=== PATIENT | female | born 2005 | race Caucasian/White ===

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

== ENCOUNTER 2024-02-10 09:59 | Emergency (ER) | payer OTHER ==
[2024-02-10] MEDS: SODIUM CHLORIDE 0.9% 2,000 ML IV STA (10:46)
--- NOTE | 2024-02-10 10:57 | ED ---
Nausea/Vomiting/Diarrhea HPI - General Chief complaint: Nausea/Vomiting/Diarrhea Stated complaint: N/V/D 16wks Preg Time Seen by Provider: 02/10/24 10:24 Source: patient, RN notes reviewed Mode of arrival: ambulatory Limitations: no limitations - History of Present Illness Initial comments: This is a 18-year-old female who presents to the emergency department for nausea and vomiting in . Patient is approximately 17 weeks and . States that the symptoms started 2 days ago. Reports associated abdominal pain. She has been unable to keep anything down since the symptoms started. Denies any changes in bowel habits. Follows with DEVULCANIZER OPERATOR at a different [facility] facility. Denies any vaginal bleeding. She has had some URI symptoms and has been around some sick contacts. MD complaint: nausea, vomiting, abdominal pain - Related Data Previous Rx's Medication Instructions Recorded Cephalexin [Keflex] 500 mg PO Q12HR 7 Days #14 cap 08/10/22 Vit No.179/Iron/Folic 1 each PO DAILY 90 Days #90 tab 08/10/22 [ Tablet] Prochlorperazine Maleate 10 mg PO Q8H PRN 7 Days #21 tablet 08/11/22 Cephalexin [Keflex] 500 mg PO Q6HR #28 cap 12/02/22 Nirmatrelvir/Ritonavir [Paxlovid 1 pack PO BID 5 Days #30 tab 02/10/24 300-100 mg Dose Pack] Ondansetron Odt [Zofran Odt] 4 mg PO Q8HR PRN #20 tab 02/10/24 Allergies Allergy/AdvReac Type Severity Reaction Status Date / Time No Known Allergies Allergy Verified 02/10/24 10:18 Review of Systems ROS Statement: Those systems with pertinent positive or pertinent negative responses have been documented in the HPI. ROS Other: All systems not noted in ROS Statement are negative. Past Medical History Past Medical History: No Reported History History of Any Multi-Drug Resistant Organisms: None Reported Past Surgical History: No Surgical Hx Reported Past Anesthesia/Blood Transfusion Reactions: No Reported Reaction Past Psychological History: No Psychological Hx Reported Smoking Status: Never smoker, Vaper Past Alcohol Use History: None Reported Past Drug Use History: None Reported - Past Family History Mother Additional Family Medical History / Comment(s): frequent UTI;pylo General Exam Limitations: no limitations General appearance: alert, in no apparent distress Head exam: Present: atraumatic, normocephalic, normal inspection Respiratory exam: Present: normal lung sounds bilaterally. Absent: respiratory distress, wheezes, rales, rhonchi, stridor Cardiovascular Exam: Present: regular rate, normal rhythm, normal heart sounds. Absent: systolic murmur, diastolic murmur, rubs, gallop, clicks Neurological exam: Present: alert, oriented X3, CN II-XII intact Psychiatric exam: Present: normal affect, normal mood Skin exam: Present: warm, dry, intact, normal color. Absent: rash Course Vital Signs 02/10/24 02/10/24 02/10/24 10:16 11:53 13:03 Temperature 97.9 F 97.9 F 98.1 F Pulse Rate 74 86 82 Respiratory 20 18 18 Rate Blood Pressure 111/74 114/74 118/76 O2 Sat by Pulse 99 97 98 Oximetry Medical Decision Making - Medical Decision Making This is a 18 year old female who presents to the emergency department for nausea, vomiting, and abdominal pain. Was pt. sent in by a medical professional or institution? @ -No Did you speak to anyone other than the patient for history? @ -No Did you review nursing and triage notes? @ -Yes, and I agree, it is accurate with regards to the patient's symptoms. Were old charts reviewed? @ -No Differential Diagnosis? @ -Differential Nausea and Vomiting: Gastroenteritis, cholecystitis, appendicitis, pancreatitis, migraine, benign positional vertigo, food borne illness, pyelonephritis, irritable bowel syndrome, influenza, Covid, GERD, incarcerated hernia, intestinal obstruction, this is not meant to be an all-inclusive list. EKG interpreted by me (3pts min.)? @ -Not obtained X-rays interpreted by me (1pt min.)? @ -Not obtained CT interpreted by me (1pt min.)? @ -Not obtained U/S interpreted by me (1pt. min.)? @ -OB ultrasound obtained. My interpretation identifies a single live IUP What testing was considered but not performed? (CT, X-rays, U/S, labs)? Why? @ -None What meds were considered but not given? Why? @ -None Did you discuss the management of the patient with other professionals? @ -No Did you reconcile home meds? @ -No Was smoking cessation discussed for >3mins.? @ -No Was critical care preformed (if so, how long)? @ -No Were there social determinants of health that impacted care today? How? (Homelessness, low income, unemployed, alcoholism, drug addiction, transportation, low edu. Level, literacy, decrease access to med. care, prison, rehab)? @ -No Was there de-escalation of care discussed even if they declined? (Discuss DNR or withdrawal of care, Hospice)? @ -No What co-morbidities impacted this encounter? (DM, HTN, Smoking, COPD, CAD, Cancer, CVA, Hep., AIDS, mental health diagnosis, sleep apnea, morbid obesity)? @ - Was patient admitted / discharged? @ -Discharged. Lab work unremarkable. Urinalysis negative for signs of infection. Patient is positive for COVID-19. Obstetrics ultrasound obtained demonstrating a single live intrauterine measuring 18 weeks and 4 days. Cardiac activity 149 bpm. Patient treated with IV fluids, Tylenol, and Zofran with improvement in symptoms. She was tolerating oral intake afterwards and eating fried chicken. Discussed with the patient that because she is , we will start her on Paxlovid. She was also given a prescription for Zofran for additional symptomatic management. She is advised to slowly advance her diet as tolerated and remain well-hydrated. Also advised Tylenol as needed for pain relief. Patient discharged home in stable condition. Undiagnosed new problem with uncertain prognosis? @ -None Drug Therapy requiring intensive monitoring for toxicity (Heparin, Nitro, Insulin, Cardizem)? @ -None Were any procedures done? @ -None Diagnosis/symptom? @ -Nausea and vomiting, abdominal pain, COVID-19 Acute, or Chronic, or Acute on Chronic? @ -Acute Uncomplicated (without systemic symptoms) or Complicated (systemic symptoms)? @ -Uncomplicated Side effects of treatment? @ -None Exacerbation, Progression, or Severe Exacerbation] @ -Not applicable Poses a threat to life or bodily function? @ -No Return precautions reviewed in depth, the patient is instructed to return to the emergency department with any new, worsening, or concerning symptoms. Patient verbalized understanding. This case was discussed in detail with the attending ED physician, Dr. Sandra davis. Presentation, findings, and treatment plan discussed in detail as well. - Lab Data Result diagrams: 02/10/24 10:45 02/10/24 10:45 Lab Results 02/10/24 02/10/24 02/10/24 Range/Units 10:45 10:45 10:45 WBC 7.8 (4.0-11.0) k/uL RBC 3.98 (3.80-5.40) m/uL Hgb 12.5 (11.4-16.0) gm/dL Hct 37.9 (34.0-46.0) % MCV 95.2 (80.0-100.0) fL MCH 31.4 (25.0-35.0) pg MCHC 33.0 (31.0-37.0) g/dL RDW 13.3 (11.5-15.5) % Plt Count 237 (150-450) k/uL MPV 7.7 Neutrophils % 69 % Lymphocytes % 20 % Monocytes % 5 % Eosinophils % 3 % Basophils % 0 % Neutrophils # 5.4 (1.3-7.7) k/uL Lymphocytes # 1.6 (1.0-4.8) k/uL Monocytes # 0.4 (0-1.0) k/uL Eosinophils # 0.2 (0-0.7) k/uL Basophils # 0.0 (0-0.2) k/uL Sodium 133 L (137-145) mmol/L Potassium 4.6 (3.5-5.1) mmol/L Chloride 104 (98-107) mmol/L Carbon Dioxide 25 (22-30) mmol/L Anion Gap 4 mmol/L BUN 5 L (7-17) mg/dL Creatinine 0.36 L (0.52-1.04) mg/dL Est GFR (CKD-EPI)AfAm >90 (>60 ml/min/1.73 sqM) Est GFR (CKD-EPI)NonAf >90 (>60 ml/min/1.73 sqM) Glucose 80 (74-99) mg/dL Calcium 8.5 (8.4-10.2) mg/dL Total Bilirubin 0.5 (0.2-1.3) mg/dL AST 37 H (14-36) U/L ALT 32 (4-34) U/L Alkaline Phosphatase 43 (38-126) U/L Total Protein 6.7 (6.3-8.2) g/dL Albumin 3.6 (3.5-5.0) g/dL Amylase 57 (30-110) U/L Lipase 21 L (23-300) U/L Urine Color Colorless Urine Appearance Clear (Clear) Urine pH 7.5 (5.0-8.0) Ur Specific [place] 1.017 (1.001-1.035) Urine Protein Negative (Negative) Urine Glucose (UA) Negative (Negative) Urine Ketones Negative (Negative) Urine Blood Negative (Negative) Urine Nitrite Negative (Negative) Urine Bilirubin Negative (Negative) Urine Urobilinogen <2.0 (<2.0) mg/dL Ur Leukocyte Esterase Negative (Negative) Influenza Type A (PCR) (Not Detectd) Influenza Type B (PCR) (Not Detectd) RSV (PCR) (Not Detectd) SARS-CoV-2 (PCR) (Not Detectd) 02/10/24 Range/Units 10:45 WBC (4.0-11.0) k/uL RBC (3.80-5.40) m/uL Hgb (11.4-16.0) gm/dL Hct (34.0-46.0) % MCV (80.0-100.0) fL MCH (25.0-35.0) pg MCHC (31.0-37.0) g/dL RDW (11.5-15.5) % Plt Count (150-450) k/uL MPV Neutrophils % % Lymphocytes % % Monocytes % % Eosinophils % % Basophils % % Neutrophils # (1.3-7.7) k/uL Lymphocytes # (1.0-4.8) k/uL Monocytes # (0-1.0) k/uL Eosinophils # (0-0.7) k/uL Basophils # (0-0.2) k/uL Sodium (137-145) mmol/L Potassium (3.5-5.1) mmol/L Chloride (98-107) mmol/L Carbon Dioxide (22-30) mmol/L Anion Gap mmol/L BUN (7-17) mg/dL Creatinine (0.52-1.04) mg/dL Est GFR (CKD-EPI)AfAm (>60 ml/min/1.73 sqM) Est GFR (CKD-EPI)NonAf (>60 ml/min/1.73 sqM) Glucose (74-99) mg/dL Calcium (8.4-10.2) mg/dL Total Bilirubin (0.2-1.3) mg/dL AST (14-36) U/L ALT (4-34) U/L Alkaline Phosphatase (38-126) U/L Total Protein (6.3-8.2) g/dL Albumin (3.5-5.0) g/dL Amylase (30-110) U/L Lipase (23-300) U/L Urine Color Urine Appearance (Clear) Urine pH (5.0-8.0) Ur Specific [place] (1.001-1.035) Urine Protein (Negative) Urine Glucose (UA) (Negative) Urine Ketones (Negative) Urine Blood (Negative) Urine Nitrite (Negative) Urine Bilirubin (Negative) Urine Urobilinogen (<2.0) mg/dL Ur Leukocyte Esterase (Negative) Influenza Type A (PCR) Not Detected (Not Detectd) Influenza Type B (PCR) Not Detected (Not Detectd) RSV (PCR) Not Detected (Not Detectd) SARS-CoV-2 (PCR) Detected A (Not Detectd) - Radiology Data Radiology results: report reviewed, image reviewed Disposition Clinical Impression: Nausea and vomiting, COVID-19 Disposition: HOME SELF-CARE Instructions (If sedation given, give patient instructions): Acute Nausea and Vomiting (ED), COVID-19 (Coronavirus Disease 2019) (ED) Additional Instructions: Return to the emergency department with any new, worsening, or concerning symptoms. Take the Paxlovid as prescribed for 5 days. You can take the Zofran up to every 8 hours as needed for nausea and vomiting. Slowly advance your diet as tolerated and remain well-hydrated. Take Tylenol as needed for pain relief. Follow up with your primary care provider in 1-2 days and with your DEVULCANIZER OPERATOR. Prescriptions: Nirmatrelvir/Ritonavir [Paxlovid 300-100 mg Dose Pack] 1 pack PO BID 5 Days #30 tab Ondansetron Odt [Zofran Odt] 4 mg PO Q8HR PRN #20 tab PRN Reason: Nausea And Vomiting Is patient prescribed a controlled substance at d/c from ED?: No Referrals: Guillermina Weaver MD [Primary Care Provider] - 1-2 days Time of Disposition: 12:56
[2024-02-10] MEDS: ACETAMINOPHEN IV (For NPO) 1,000 MG in EMPTY BAG 1 BAG IVPB STA (11:08)
[2024-02-10 11:09] LABS: Appearance,Urine Clear (Clear); Basophils % (A) 0 %; Bilirubin,Urine Negative (Negative); Blood,Urine Negative (Negative); Color,Urine Colorless; Eosinophils # (A) 0.2 k/uL (0-0.7); Eosinophils % (A) 3 %; Glucose,Urine (UA) Negative (Negative); HCT 37.9 % (34.0-46.0); HGB 12.5 gm/dL (11.4-16.0); Ketones,Urine Negative (Negative); Leukocyte Esterase,Urine Negative (Negative); Lymphocytes # (A) 1.6 k/uL (1.0-4.8); Lymphocytes % (A) 20 %; MCH 31.4 pg (25.0-35.0); MCV 95.2 fL (80.0-100.0); Mean Platelet Volume 7.7; Monocytes # (A) 0.4 k/uL (0-1.0); Monocytes % (A) 5 %; Neutrophils # (A) 5.4 k/uL (1.3-7.7); Neutrophils % (A) 69 %; Nitrite,Urine Negative (Negative); PH, Urine 7.5 (5.0-8.0); Platelet Count 237 k/uL (150-450); Protein,Urine Negative (Negative); RBC 3.98 m/uL (3.80-5.40); RDW 13.3 % (11.5-15.5); Specific Gravity,Urine 1.017 (1.001-1.035); Urobilinogen,Urine <2.0 mg/dL (<2.0); WBC 7.8 k/uL (4.0-11.0)
[2024-02-10] MEDS: ONDANSETRON 4 MG/2 ML VIAL IVP STA (11:45)
--- NOTE | 2024-02-10 11:52 | US ---
EXAMINATION TYPE: US OB >= 14 wk fetus DATE OF EXAM: 02/10/2024 COMPARISON: None CLINICAL INDICATION: Female, 18 years old with history of Abdominal pain in ; mid abd pain x 2 days TECHNIQUE: Transabdominal (TA) GESTATIONAL AGE / DATING Physician Established: (16 weeks/ 6 days) EDC: 07/21/2024 Dates by LMP: LMP unknown Dates by First Scan: outside imaging Dates by Current Scan: (18 weeks/4 days) EDC: 07/09/2024 Beta HCG (if available): not available . SURVEY IUP: Single PLACENTA: Anterior PREVIA: No Previa BEATRIZ: 9.1 cm Normal CERVICAL LENGTH (transabdominal: norm > 3.0cm): 3.5 cm BIOMETRY PRESENTATION: Vertex LIE: Longitudinal BPD: 4.1 cm 18 weeks / 3 days HC: 15.9 cm 18 weeks / 5 days AC: 13.7 cm 19 weeks / 1 days FL: 2.8 cm 18 weeks / 4 days ESTIMATED WEIGHT IN GRAMS: 259.3 grams ESTIMATED WEIGHT IN LBS/OZ: 0 lbs. 9 oz. WEIGHT PERCENTAGE BASED ON ESTABLISHED DATES: >97% HC/AC: 1.16 Normal FL/AC: 20.3 Normal HEART RATE: 149 bpm RHYTHM: Normal IMPRESSION: 1. Single intrauterine gestation estimated at 18 weeks 4 days gestation based on the current ultrasou nd measurements. Cardiac activity measures 149 bpm
[2024-02-10 11:53] LABS: ALT 32 U/L (4-34); AST 37 U/L (14-36); African American GFR (CKD) >90 (>60 ml/min/1.73 sqM); Albumin 3.6 g/dL (3.5-5.0); Alkaline Phosphatase 43 U/L (38-126); Amylase 57 U/L (30-110); Anion Gap 4 mmol/L; Blood Urea Nitrogen 5 mg/dL (7-17); Calcium 8.5 mg/dL (8.4-10.2); Carbon Dioxide 25 mmol/L (22-30); Chloride 104 mmol/L (98-107); Glucose 80 mg/dL (74-99); Lipase 21 U/L (23-300); Non-African American GFR(CKD) >90 (>60 ml/min/1.73 sqM); Sodium 133 mmol/L (137-145); Total Bilirubin 0.5 mg/dL (0.2-1.3); Total Protein 6.7 g/dL (6.3-8.2)
[2024-02-10 12:10] LABS: Potassium 4.6 mmol/L (3.5-5.1)
[2024-02-10 12:27] VITALS: RESP 18
[2024-02-10] MEDS: ONDANSETRON 4 MG ODT STARTER PACK 2 TAB BTL PO STA (12:59)
[2024-02-10 13:41] VITALS: BP 118/76; PULSE 82; TEMP 98.1
== END 2024-02-10 13:02 | disposition home or self-care (01) ==
LOC: EC 09:59
DX: O98.512 Other viral diseases complicating pregnancy, second trimester (principal); U07.1 COVID-19; O99.332 Smoking (tobacco) complicating pregnancy, second trimester; F17.290 Nicotine dependence, other tobacco product, uncomplicated; Z3A.18 18 weeks gestation of pregnancy
CPT/HCPCS: 36415; 80053; 82150; 83690; 85025; 81003; 84702; 87636; 76805; 99284; 96365; 96375; 96361; J2405; J0131; S0119

== ENCOUNTER 2024-05-04 18:25 | Outpatient (CLI) | payer OTHER ==
[2024-05-04] MEDS: ACETAMINOPHEN TAB 500 MG TAB PO STA (19:03)
[2024-05-04 19:16] LABS: Appearance,Urine Clear (Clear); Bilirubin,Urine Negative (Negative); Blood,Urine Negative (Negative); Color,Urine Light Yellow; Glucose,Urine (UA) Negative (Negative); Ketones,Urine Negative (Negative); Leukocyte Esterase,Urine Negative (Negative); Nitrite,Urine Negative (Negative); Protein,Urine Negative (Negative); Specific Gravity,Urine 1.018 (1.001-1.035); Urobilinogen,Urine <2.0 mg/dL (<2.0)
[2024-05-04 20:22] LABS: Basophils % (A) 0 %; Eosinophils # (A) 0.3 k/uL (0-0.7); Eosinophils % (A) 2 %; HCT 30.1 % (34.0-46.0); Lymphocytes # (A) 2.1 k/uL (1.0-4.8); Lymphocytes % (A) 18 %; MCH 29.9 pg (25.0-35.0); MCHC 33.1 g/dL (31.0-37.0); MCV 90.1 fL (80.0-100.0); Mean Platelet Volume 8.4; Monocytes # (A) 0.6 k/uL (0-1.0); Monocytes % (A) 5 %; Neutrophils # (A) 8.5 k/uL (1.3-7.7); Neutrophils % (A) 72 %; Platelet Count 227 k/uL (150-450); RBC 3.34 m/uL (3.80-5.40); RDW 13.8 % (11.5-15.5); WBC 11.8 k/uL (4.0-11.0)
[2024-05-04 20:42] LABS: ALT 26 U/L (4-34); AST 23 U/L (14-36); African American GFR (CKD) >90 (>60 ml/min/1.73 sqM); Albumin 3.1 g/dL (3.5-5.0); Alkaline Phosphatase 100 U/L (38-126); Anion Gap 5 mmol/L; Blood Urea Nitrogen 7 mg/dL (7-17); Calcium 8.6 mg/dL (8.4-10.2); Carbon Dioxide 18 mmol/L (22-30); Chloride 109 mmol/L (98-107); Glucose 81 mg/dL (74-99); Non-African American GFR(CKD) >90 (>60 ml/min/1.73 sqM); Potassium 4.1 mmol/L (3.5-5.1); Sodium 132 mmol/L (137-145); Total Bilirubin 0.3 mg/dL (0.2-1.3); Total Protein 5.8 g/dL (6.3-8.2)
--- NOTE | 2024-05-04 21:26 | US ---
EXAMINATION TYPE: US abdomen limited DATE OF EXAM: 05/04/2024 COMPARISON: NONE CLINICAL INDICATION: Female, 18 years old with history of appendix and gallbladder; pain patient 29 w eeks exam limitations due to bowel gas. TECHNIQUE: Multiple sonographic images of the right upper quadrant are obtained. FINDINGS: EXAM MEASUREMENTS: Liver Length: 16.3 cm Gallbladder Wall: .2 cm CBD: .4 cm Right Kidney: 11.9 x 5.1 x 5.6 cm MEETING COORDINATOR NOTES: Pancreas: Obscured by bowel gas Liver: Increased attenuation Gallbladder: limited no stones seen Evidence for sonographic Dawson's sign: no CBD: wnl Right Kidney: Limited lower pole due to bowel gas. IMPRESSION: 1. No evidence for acute abdominal process. 2. Hepatic steatosis.
--- NOTE | 2024-05-04 21:26 | US ---
EXAMINATION TYPE: US abdomen APPY DATE OF EXAM: 05/04/2024 COMPARISON: NONE CLINICAL INDICATION: Female, 18 years old with history of pain; pain TECHNIQUE: Multiple sonographic images of the right lower quadrant were obtained with graded compress ion. FINDINGS: APPENDIX Is the appendix seen in its entirety from the proximal cecum to distal end: no Is the appendix compressible: yes Does the appendix wall appear hypervascular: no Is an appendicolith present: no Is there inflammatory changes or free fluid present: no IMPRESSION: Tubular structure thought to represent the appendix is within normal limits.
[2024-05-05 00:42] VITALS: BP 117/55; PULSE 82; RESP 16; TEMP 97.7
--- NOTE | 2024-06-02 16:05 | P.MSEPDOC ---
Presenting Problems - Arrival Data Date of Arrival on Unit: 05/05/24 Time of Arrival on Unit: 18:25 Mode of Transport: Ambulatory - Complaint OB-Reason for Admission/Chief Complaint: Pain Comment: Patient arrived to triage with abdominal pain 7/10 upper abdomen, right abdomen and lower abdomen. Medical History - Information : 1 Para: 0 Term: 0 : 0 Abortions: Spontaneous or Elective: 0 Number of Living Children: 0 - Gestational Age Gestational Age by KAMILA (wks/days): 29 Weeks and 0 Days Review of Systems - Review of Systems Constitutional: No problems Breast: No problems ENT: No problems Cardiovascular: No problems Respiratory: No problems Gastrointestinal: Pain Genitourinary: No problems Musculoskeletal: No problems Neurological: No problems Skin: No problems Vital Signs - Temperature Temperature: 97.7 F Temperature Source: Oral - Pulse Pulse Oximetery Pulse Rate: 82 Pulse Assessment Method: Pulse Oximetry - Respirations Respiratory Rate: 16 Oxygen Delivery Method: Room Air O2 Sat by Pulse Oximetry: 94 - Blood Pressure Right Arm Blood Pressure: 117/55 Blood Pressure Mean: 75 Blood Pressure Source: Automatic Cuff Medical Screen Scoring - Cervical Exam Dilation (cm): 0 Effacement (%): 50 Station: -3 Membranes: Intact - Uterine Contractions Intensity: Mild Resting: Soft to palpation - Assessment - Baby A Baseline FHR: 130 Heart Rate - NICHD Category: Category I (Normal) NST: Reactive Physician Notification - Physician Notified Physician Notified Date: 05/05/24 Physician Notified Time: 18:55 Physician: Shanda Shirley New Order Received: Yes - Notification Comment Comment: see above and obix notes. Maternal Triage Index - Urgent/Priority 2 Urgent Priority 2: Yes Provider Notified: Shanda Shirley Provider Notified Time: 18:55 Criteria Met for Priority 2: Stormy Ray RN gave Dr. Shirley report on patients pain , FHT and contraction pattern, UA ordered and Tylenol 1000mg po ordered. if U/A negative patient can go home. Dr. Shirley called at 1942 regarding patients pain and contraction pattern. US of gallbladder and appendix ordered CBC CMP ordered. [id number] DR shirley aware of all Labs and Ultrasound results, contraction pattern Dr. Shirley is discharging patient and recommends patient call for a follow up to her OBGYN tomorrow morning. Disposition - Disposition OB Disposition: Discharge to home Discharge Date: 05/05/24 Discharge Time: 21:50 I agree with the RN Medical Screening Exam: Yes Physician's MSE Comment: I have neither seen nor examined the patient Case reviewed; plan agreed upon as documented in EMR&OBIX.: Yes Diagnosis: MATERNAL CARE FOR PROBLEM, UNSP, THIRD * DO NOT USE *
== END 2024-05-04 21:50 | disposition home or self-care (01) ==
LOC: FBPOP 18:25
PROVIDERS: ATTEND Obstetrics & Gynecology
DX: O26.893 Other specified pregnancy related conditions, third trimester (principal); R10.31 Right lower quadrant pain; R10.11 Right upper quadrant pain; K76.0 Fatty (change of) liver, not elsewhere classified; Z3A.29 29 weeks gestation of pregnancy
CPT/HCPCS: 59025; 36415; 80053; 85025; 81003; 76705; G0463; 99213